=== PATIENT | female | born 1960 | race Caucasian/White ===

== ENCOUNTER 2018-05-13 00:03 | Inpatient (IN) | END 2018-05-13 17:51 | disposition home or self-care (01) | DRG 390 ==

== ENCOUNTER 2018-11-30 07:37 | Inpatient (IN) | payer OTHER ==
--- NOTE | 2018-11-27 11:51 | HP ---
Date/Time of Note Date/Time of Note DATE: 11/27/18 TIME: 11:42 Assessment/Plan VTE Prophylaxis SCD applied (from Nsg): Yes SCD contraindicated: low risk/ambulating Pharmacological prophylaxis: LMWH Lines/Catheters IV Catheter Type (from Nrsg): Saline Lock Central line still needed: No Urinary Cath still in place: No Assessment/Plan Hospital Course This patient has a large incisional hernia. We have reviewed the surgical options. She understands the risk of surgery to include but not exclusive to: Bleeding, infection, damage to bowel requiring repair and a staged operation, recurrence, 5% lifetime risk of mesh complications, chronic pain syndrome, drain placement, seroma. She understands mesh would be placed. Problems: (1) Incisional hernia Status: Chronic Qualifiers: Obstruction and gangrene presence: with obstruction but without gangrene Qualified Codes: K43.0 - Incisional hernia with obstruction, without gangrene Assessment/Plan Admission to the hospital the day of surgery. Patient will undergo a open incisional hernia repair with placement of mesh. She will be admitted for overnight observation. Drains will be placed. HPI/ROS Admit Date/Time Admit Date/Time 11/27/2018 Hx of Present Illness Chief complaint: Incisional hernia History of present illness: This is a 58-year-old female. She's had previous surgery for diverticulitis. N 2017 she was admitted to [facility] for a small bowel obstruction. She was transferred to [facility] and her symptoms resolved. She was discharged home. She has a large incisional hernia, and requires repair. The patient had a preoperative colonoscopy which is relatively unremarkable. ROS Constitutional: no complaints, improved Eyes: no complaints ENT: no complaints Respiratory: no complaints Cardiovascular: no complaints Gastrointestinal: no complaints Musculoskeletal: no complaints Neurologic: no complaints Psychological: no complaints, nl mood/affect PMH/Family/Social Past Medical History Medical History: hypertension Medications No ASA, no blood thinners HTN meds Coded Allergies: No Known Allergy (Unverified , 05/13/18) Past Surgical History Past Surgical Hx: other (2006 Surgery at [facility] for Diverticulitis) Social History Smoking Status: Never smoker Drug Use: none Exam/Review of Systems Exam Constitutional: alert, oriented, well developed Psych: no complaints, nl mood/affect Head: normocephalic Eyes: nl conjunctiva, EOMI ENMT: nl external ears & nose Neck: supple Respiratory: clear to auscultation, normal air movement Cardiovascular: regular rate and rhythm, nl pulses Gastrointestinal: soft, surgical scars, other (Scar in the left upper quadrant and midline, midline large soft hernia) Musculoskeletal: nl extremities to inspection, nl gait and stance Extremities: normal pulses Neurological: MANAGER OF GLOBAL II-XII intact, nl mental status, nl speech, nl strength Skin: nl JULIETTE Cruz M.D. November 27, 2018 11:51
[~2018-11-30] VITALS: Ht 139.7 cm; Wt 60.2 kg
[2018-11-30] VITALS (32 sets, daily range): BP systolic 93–141; BP diastolic 53–87; PULSE 64–94; RESP 16–33; Ht 139.7 cm; Wt 60.2 kg
[~2018-11-30 07:37] MED LIST: SOD CHLORIDE 0.9% 1,000 ML IV SCH
[2018-11-30] MEDS ORDERED: AMLO-147 PO (08:06)
[2018-11-30] MEDS ORDERED: LISI40TA3 PO (08:08)
--- NOTE | 2018-11-30 09:31 | RADRPT ---
Vent Rate: 60 bpm RR Interval: 1008 msec MD Interval: 191 msec QRS Duration: 91 msec QT Interval: 426 msec QTC Interval: 424 msec P-R-T Bryce: 34 - 93 - 63 degrees Sinus rhythm...normal Electronically Signed By: Reyes Cleary
[2018-11-30] MEDS ORDERED: POLYMYXIN/BACITRACIN 1L IRRIG ONE (11:24)
[2018-11-30] MEDS ORDERED: BUPIVACAINE 0.25%/EPI (SDV) 30 ML INJ ONE (11:27)
--- NOTE | 2018-11-30 11:28 | HPN ---
Date/Time of Note Date/Time of Note DATE: 11/30/18 TIME: 11:28 Interval H&P Admission Note Pt. seen H&P reviewed: No system changes JULIETTE VELOZ M.D. November 30, 2018 11:28
--- NOTE | 2018-11-30 11:41 | PREAC ---
Date/Time of Note Date/Time of Note DATE: 11/30/18 TIME: 11:40 Anesthesia Eval and Record Evaluation Time Pre-Procedure Interview DATE: 11/30/18 TIME: 11:40 Age 58 Sex female NPO: 8 hrs Preoperative diagnosis Ventral hernia Planned procedure Lap ventral Hernia repair Past Medical History Past Medical History: Includes Cardio: HTN, Dyslipidemia GI: GERD, Morbid obesity Surgery & Anesthesia Issues No known issue Meds Anticoagulation: Yes Beta Patricia within 24 hr: No Reason Beta Patricia not given: Pt. not on B-Patricia Reported Medications Lisinopril* (Lisinopril*) 40 Mg Tablet, 40 MG PO DAILY, #30 TAB 11/30/18 Amlodipine Besylate* (Amlodipine Besylate*) 10 Mg Tablet, 10 MG PO DAILY, #30 TAB 11/30/18 Current Medications Sodium Chloride 1,000 ml @ 25 mls/hr Q24H IV ; Start 11/27/18 at 11:51 Meds reviewed: Yes Allergies Coded Allergies: No Known Allergy (Unverified , 11/30/18) Allergies Reviewed: Yes Labs/Studies Labs Reviewed: Reviewed by anesthesiologist Result Diagram: 11/30/18 0830 11/30/18 0830 Laboratory Tests 11/30/18 08:30 test: N/A Studies: ECG Pre-procedure Exam Last vitals Vital Signs Date Temp Pulse Resp B/P (MAP) Pulse Ox O2 O2 Flow FiO2 Time Delivery Rate 11/30/18 97.2 64 18 141/87 99 Room Air 08:54 (105) Airway: Adequate mouth opening, Adequate thyromental dist Mallampati: Mallampati II Teeth: Normal Lung: Normal Heart: Normal ASA Physical Status ASA physical status: 3 Emergency: None Planned Anesthetic General/MAC: ETT Planned Pain Management Sub-arachniod narcotics, Parenteral pain med Pre-operative Attestations Prior to commencing anesthesia and surgery, the patient was re-evaluated, there was verification of: *The patient's identity *The results of appropriate recent lab work and preoperative vital signs *The above evaluation not changing prior to induction *Anesthetic plan, risk benefits, alternative and complications discussed with patient/family; questions answered; patient/family understands, accepts and wishes to proceed. GLADYS COMER MD November 30, 2018 11:41
[2018-11-30] MEDS ORDERED: MIDAZOLAM 1 MG/ML 2 ML INJ ONE (11:46)
[2018-11-30] MEDS ORDERED: morphine SULFATE/PF (10 MG/10 ML) INJ ONE (11:46)
[2018-11-30] MEDS ORDERED: FENTAnyl 50 MCG/ML VIAL ONE ×3 (11:46→16:30)
[2018-11-30] MEDS ORDERED: PHENYLephrine 10 MG INJ ONE (12:41)
[2018-11-30] MEDS ORDERED: CEFAZOLIN 1 GM INJ ONE (15:13)
[2018-11-30] MEDS ORDERED: ROCURONIUM 50 MG INJ ONE (15:13)
[2018-11-30] MEDS ORDERED: ETOMIDATE 20 MG INJ ONE (15:13)
[2018-11-30] MEDS ORDERED: LIDOCAINE 2% (SDV) 5 ML INJ ONE (15:13)
[2018-11-30] MEDS ORDERED: METOCLOPRAMIDE 10 MG INJ ONE (15:14)
[2018-11-30] MEDS ORDERED: ONDANSETRON 4 MG INJ ONE (15:14)
[2018-11-30] MEDS ORDERED: DEXAMETHASONE 4 MG/ML 5 ML INJ ONE (15:14)
[2018-11-30] MEDS ORDERED: BACITRACIN/POLYMYXIN 28.35 GM OINT TOP ONE (15:58)
--- NOTE | 2018-11-30 16:26 | OPR ---
Date/Time of Note Date/Time of Note DATE: 11/30/18 TIME: 16:11 Operative Report Procedure Date: November 30, 2018 Preoperative Diagnosis Large incisional hernia Postoperative Diagnosis Large incisional hernia, with loss of abdominal domain. Hernia size approximately 20 x 20 cm. Operation/Procedure Performed 1. Exploratory laparotomy 2. Lysis of adhesions approximately 25% of the operation 1 hour 3. Left-sided component separation anterior 4. Right-sided component separation anterior 5. Incisional hernia repair with placement of mesh. Surgeon Juliette Veloz MD Human Resources Professional MATTHIAS Fink Anesthesia Type: general, spinal Anesthesiologist: GLADYS COMER MD Estimated Blood Loss: 200 - 250 ml's Transfusion none Specimen Hernia sac Grafts/Implants 2 layers of mesh, large porous light weight polypropylene, with medium weight Seprafilm coated polypropylene. Tubes/Drains Prefascial drains bilaterally. Carlos's 19 Complications none Pt Condition Post Procedure: stable Disposition: PACU Indications This is a 58-year-old female who had a very large incisional hernia requesting repair. Procedure Description Findings: The patient had an approximately 20 x 20 cm hernia with loss of domain. She had significant scarring in the right flank and left upper quadrant. Preoperatively the patient was marked. Prior to induction of anesthesia the anesthesiologist placed a spinal. The patient was then intubated. The area was prepped and draped. A full timeout was performed. The old scar was reexcised. Blunt dissection continued down to the very large hernia sac. There was no bowel adherent in the hernia sac. The hernia sac was excised in its entirety. We then worked our way to the edges of the hernia. It was a large defect approximately 20 cm x 20 cm. Initially prefascial a 1 cm margin was made. Then the retrorectus space was entered. The rectal rectus space was developed, bilaterally. There was scarring where the old colostomy site was. I attempted to bring the retrorectus space together but it was clear that that was going to be impossible. I then pulled on the anterior fascia and noted that we still had at least a 10 to 15 cm defect to reapproximate. Therefore I attempted on the left side where the previous colostomy was to develop a plane on top of the transversalis fascia. But due to scarring this was very difficult and I thought that we would not be able to develop the plane needed for this type of repair. The reason I tried the left side as I was aside with the most scarring from the colostomy. Therefore I decided to proceed with an anterior component separation. I went out to the margins. Identified the junction of the rectus muscle and the external oblique fascia. On the left side were able to enter the space relatively easily. And I extended that released from the ribs almost down to the area of the iliac crest. I attempted the same procedure on the right side but that was more contracted and initially I got into the lateral margin of the rectus sheath. That was reapproximated with a running 0 PDS. I went out laterally and got into the correct plane. And again developed that from the ribs down to just above the iliac crest. That gave us more room. We reevaluated the hernia and the hernia size was quite large it was close to just below the xiphoid process down to above the pubic bone. We are able to reapproximate the posterior fascia, but again even with a component separation and complete relaxation this was not possible. Therefore I placed a medium weight polypropylene mesh with Seprafilm coating and reapproximated to the posterior fascia using a running PDS. Care was taken not to involve any intra- abdominal content in the closure. The overlap was approximately 2 to 3 cm. This was not a strength layer by layer to keep the bowel inside. The lower portion just above the pelvic bone the posterior fascia was extremely thin and I did place 1 piece of light weight polypropylene in that area just to reinforce it. It was tacked to the medium weight polypropylene to ensure there would be no intermenstrual hernia. Once that was completed we did a complete sponge count. I then reapproximated the anterior fascia both cranially and caudally as far as I could go before start tearing. This was done with #1 Vicryl [id number] interrupted sutures. This left us with a defect that was approximately 5 x 3 cm. This also gave the previous mesh in underlay of approximately 5 to 7 cm and a 360 degree fashion. We had a large anterior component separation. Therefore I completely opened up that space. And placed a large piece of light weight polypropylene mesh extending from the iliac crest up to the ribs laterally, and from the pubic bone to the xiphoid process in the midline. It was tacked into place with a bunch of interrupted #1 Vicryl sutures. It extended beyond the component separation. While tying these Vicryl sutures a clamp was placed below them to ensure that there was no incarceration of a hidden nerve. Once that was completed the area was well irrigated. Two 19 Carlos drains were placed and sutured in place with 0 silk suture. This was underneath the flap. The flap was then reapproximated to the fascia using multiple interrupted 0 chromic sutures. The midline was closed in a 3 layer closure. The umbilicus was reapproximated to the fascia using 1-0 Vicryl suture. The skin was then closed with skin ruby. Sterile dressing was applied and abdominal binder applied. Sponge and needle count again were correct at the end of procedure. Personally repeated the count of the sponges a second time myself. JULIETTE VELOZ M.D. November 30, 2018 16:26
[2018-11-30] MEDS ORDERED: METOCLOPRAMIDE 10 MG INJ IV PRN (16:30)
[2018-11-30] MEDS ORDERED: HYDROCODONE/APAP (5/325) TAB PO PRN (16:30)
[2018-11-30] MEDS ORDERED: DIPHENHYDRAMINE 50 MG INJ IV PRN ×2 (16:30)
[2018-11-30] MEDS ORDERED: HYDROmorphONE 1 MG/5 ML IV SYRINGE IV PRN ×2 (16:30)
[2018-11-30] MEDS ORDERED: MEPERIDINE 25 MG INJ IV PRN (16:30)
[2018-11-30] MEDS ORDERED: FENTAnyl 50 MCG/ML VIAL IV PRN (16:30)
[2018-11-30] MEDS ORDERED: NALOXONE (0.4 MG/ML) INJ IV PRN (16:30)
[2018-11-30] MEDS ORDERED: HYDROCODONE/APAP (10/325) TAB PO PRN (16:30)
[2018-11-30] MEDS ORDERED: ONDANSETRON 4 MG INJ IV PRN (16:30)
--- NOTE | 2018-11-30 16:31 | PAC ---
Date/Time of Note Date/Time of Note DATE: 11/30/18 TIME: 16:30 Post-Anesthesia Notes Post-Anesthesia Note Last documented vital signs Vital Signs Date Temp Pulse Resp B/P (MAP) Pulse Ox O2 O2 Flow FiO2 Time Delivery Rate 11/30/18 98.0 16:14 11/30/18 64 18 141/87 99 Room Air 08:54 (105) Activity: WNL Respiratory function: WNL Cardiovascular function: WNL Mental status: Baseline Pain reasonably controlled: Yes Hydration appropriate: Yes Nausea/Vomiting absent: Yes Comments BP:122/56, P:78, Spo2:100%, T:99,8 GLADYS COMER MD November 30, 2018 16:31
--- NOTE | 2018-11-30 17:56 | CONS ---
Assessment/Plan Assessment/Plan Hospital Course (Demo Recall) 58 yo female with hypertension who is POD0 for ventral hernia repair. We have been asked to provide medical comanagement - Ok to continue amlodipine and lisinopril through perioperative period - Pain control - Perioperative management per surgery Consultation Date/Type/Reason Admit Date/Time 11/27/2018 Date/Time of Note DATE: 11/30/18 TIME: 17:51 Hx of Present Illness 58 yo female with h/o hypertension and diverticulitis who is POD0 for ventral hernia repair Patient currently in the PACU, feels ok. A bit somnulent Take two antihypertensives Generally healthy at baseline Constitutional: no complaints, improved Eyes: no complaints ENT: no complaints Respiratory: no complaints Cardiovascular: no complaints Gastrointestinal: no complaints Genitourinary: no complaints Musculoskeletal: no complaints Skin: no complaints Neurologic: no complaints Endocrine: no complaints Lymphatic: no complaints Psychological: no complaints, nl mood/affect Immunologic: no complaints Past Medical History Medical History: hypertension Home Meds Reported Medications Lisinopril* (Lisinopril*) 40 Mg Tablet, 40 MG PO DAILY, #30 TAB 11/30/18 Amlodipine Besylate* (Amlodipine Besylate*) 10 Mg Tablet, 10 MG PO DAILY, #30 TAB 11/30/18 Medications Current Medications Hydromorphone HCl (Dilaudid) 0.2 mg PACU PRN IV MILD PAIN 1-3; Start 11/30/18 at 16:30; Stop 11/30/18 at 22:00 Hydromorphone HCl (Dilaudid) 0.4 mg PACU PRN IV MOD PAIN 4-6; Start 11/30/18 at 16:30; Stop 11/30/18 at 22:00 Fentanyl (Sublimaze) 25 mcg PACU ORDER PRN IV MILD PAIN 1-3 Last administered on 11/30/18at 16:35; Admin Dose 25 MCG; Start 11/30/18 at 16:30; Stop 11/30/18 at 22:00 Ondansetron HCl (Zofran Inj) 4 mg PACU ORDER PRN IV NAUSEA/VOMITING; Start 11/30/18 at 16:30; Stop 11/30/18 at 22:00 Metoclopramide HCl (Reglan) 10 mg PACU ORDER PRN IV NAUSEA/VOMITING; Start 11/30/18 at 16:30; Stop 11/30/18 at 22:00 Meperidine HCl (Demerol) 25 mg PACU ORDER PRN IV .RIGORS Last administered on 11/30/18at 16:33; Admin Dose 25 MG; Start 11/30/18 at 16:30; Stop 11/30/18 at 22:00 Diphenhydramine HCl (Benadryl) 25 mg PACU ORDER PRN IV .PRURITUS; Start 11/30/18 at 16:30; Stop 11/30/18 at 22:00 Naloxone HCl (Narcan) 0.2 mg Q2M PRN IV .RESP RATE; Start 11/30/18 at 16:30; Stop 12/01/18 at 11:45 Miscellaneous Information (* Miscellaneous Pharmacy Order) DURAMORPH: 0.2 MG SPI... GIVEN NEURAXIAL XX ; Start 11/30/18 at 16:30 Cefazolin Sodium/ Dextrose 50 ml @ 100 mls/hr Q8H IVPB ; Start 11/30/18 at 18:00; Stop 12/01/18 at 17:59 Hydromorphone HCl (Dilaudid) 0.5 mg Q6H PRN IV PAIN LEVEL 6-10; Start 11/30/18 at 16:30 Acetaminophen/ Hydrocodone Bitart ([place] (5/325)) 1 tab Q6H PRN PO PAIN LEVEL 6-10; Start 11/30/18 at 16:30 Acetaminophen/ Hydrocodone Bitart ([place] (10/325)) 1 tab Q6H PRN PO PAIN; Start 11/30/18 at 16:30 Ketorolac Tromethamine (Toradol) 30 mg Q6H PRN IV PAIN; Start 11/30/18 at 16:30; Stop 12/03/18 at 16:29 Diphenhydramine HCl (Benadryl) 25 mg Q6H PRN IV ITCHING; Start 11/30/18 at 16:30 Ondansetron HCl (Zofran Inj) 4 mg Q6H PRN IV NAUSEA AND/OR VOMITING; Start 11/30/18 at 16:30 Famotidine (Pepcid Iv) 20 mg Q12 IV ; Start 11/30/18 at 21:00 Potassium Chloride/Dextrose/ Sod Cl 1,000 ml @ 100 mls/hr Q10H IV ; Start 11/30/18 at 16:26 Enoxaparin Sodium (Lovenox) 40 mg DAILY@07 SC ; Start 12/01/18 at 07:00 Amlodipine Besylate (Norvasc) 10 mg DAILY PO ; Start 12/01/18 at 09:00 Lisinopril (Zestril) 40 mg DAILY PO ; Start 12/01/18 at 09:00 Allergies: Coded Allergies: No Known Allergy (Unverified , 11/30/18) Past Surgical History Past Surgical Hx: other (2006 Surgery at [facility] for Diverticulitis) Social History Smoking Status: Never smoker Drug Use: none Exam/Review of Systems Exam Vitals Vital Signs Date Temp Pulse Resp B/P (MAP) Pulse Ox O2 O2 Flow FiO2 Time Delivery Rate 11/30/18 Simple 8.0 16:21 Mask 11/30/18 98.0 16:14 11/30/18 64 18 141/87 99 08:54 (105) Constitutional: alert, oriented, well developed Psych: no complaints, nl mood/affect Head: normocephalic, atraumatic Eyes: nl conjunctiva, EOMI, nl lids, nl sclera, PERRL ENMT: nl external ears & nose, nl lips & teeth, nl nasal mucosa & septum Neck: supple, non-tender Respiratory: clear to auscultation, normal air movement Cardiovascular: regular rate and rhythm, nl pulses Gastrointestinal: soft, nl liver, spleen, non-tender Musculoskeletal: nl extremities to inspection, nl gait and stance Extremities: normal pulses Neurological: TIPPLE GREASER II-XII intact, nl mental status, nl speech, nl strength Skin: nl turgor; No rash or lesions Lymph: nl lymph nodes Results Result Diagram: 11/30/18 0830 11/30/18 0830 Results 24hrs Laboratory Tests Test 11/30/18 08:30 White Blood Count 6.4 # Red Blood Count 4.84 Hemoglobin 12.6 Hematocrit 40.1 Mean Corpuscular Volume 82.9 Mean Corpuscular Hemoglobin 26.0 L Mean Corpuscular Hemoglobin Concent 31.4 L Red Cell Distribution Width 13.4 Platelet Count 368 Mean Platelet Volume 8.5 Immature Granulocytes % 0.500 H Neutrophils % 63.6 Lymphocytes % 26.6 Monocytes % 7.0 Eosinophils % 1.2 Basophils % 1.1 Nucleated Red Blood Cells % 0.0 Immature Granulocytes # 0.030 Neutrophils # 4.1 Lymphocytes # 1.7 Monocytes # 0.5 Eosinophils # 0.1 Basophils # 0.1 Nucleated Red Blood Cells # 0.0 Sodium Level 143 Potassium Level 4.1 Chloride Level 108 Carbon Dioxide Level 27 Anion Gap 8 Blood Urea Nitrogen 20 Creatinine 0.73 Est Glomerular Filtrat Rate mL/min > 60 Glucose Level 116 Calcium Level 9.7 Beta HCG, Quantitative 2.9 Medications Medication Current Medications Hydromorphone HCl (Dilaudid) 0.2 mg PACU PRN IV MILD PAIN 1-3; Start 11/30/18 at 16:30; Stop 11/30/18 at 22:00 Hydromorphone HCl (Dilaudid) 0.4 mg PACU PRN IV MOD PAIN 4-6; Start 11/30/18 at 16:30; Stop 11/30/18 at 22:00 Fentanyl (Sublimaze) 25 mcg PACU ORDER PRN IV MILD PAIN 1-3 Last administered on 11/30/18at 16:35; Admin Dose 25 MCG; Start 11/30/18 at 16:30; Stop 11/30/18 at 22:00 Ondansetron HCl (Zofran Inj) 4 mg PACU ORDER PRN IV NAUSEA/VOMITING; Start 11/30 at 16:30; Stop 11/30/18 at 22:00 Metoclopramide HCl (Reglan) 10 mg PACU ORDER PRN IV NAUSEA/VOMITING; Start 11/30/18 at 16:30; Stop 11/30/18 at 22:00 Meperidine HCl (Demerol) 25 mg PACU ORDER PRN IV .RIGORS Last administered on 11/30/18at 16:33; Admin Dose 25 MG; Start 11/30/18 at 16:30; Stop 11/30/18 at 22:00 Diphenhydramine HCl (Benadryl) 25 mg PACU ORDER PRN IV .PRURITUS; Start 11/30/18 at 16:30; Stop 11/30/18 at 22:00 Naloxone HCl (Narcan) 0.2 mg Q2M PRN IV .RESP RATE; Start 11/30/18 at 16:30; Stop 12/01/18 at 11:45 Miscellaneous Information (* Miscellaneous Pharmacy Order) DURAMORPH: 0.2 MG SPI... GIVEN NEURAXIAL XX ; Start 11/30/18 at 16:30 Cefazolin Sodium/ Dextrose 50 ml @ 100 mls/hr Q8H IVPB ; Start 11/30/18 at 18:00; Stop 12/01/18 at 17:59 Hydromorphone HCl (Dilaudid) 0.5 mg Q6H PRN IV PAIN LEVEL 6-10; Start 11/30/18 at 16:30 Acetaminophen/ Hydrocodone Bitart ([place] (5/325)) 1 tab Q6H PRN PO PAIN LEVEL 6-10; Start 11/30/18 at 16:30 Acetaminophen/ Hydrocodone Bitart ([place] (10/325)) 1 tab Q6H PRN PO PAIN; Start 11/30/18 at 16:30 Ketorolac Tromethamine (Toradol) 30 mg Q6H PRN IV PAIN; Start 11/30/18 at 16:30; Stop 12/03/18 at 16:29 Diphenhydramine HCl (Benadryl) 25 mg Q6H PRN IV ITCHING; Start 11/30/18 at 16:30 Ondansetron HCl (Zofran Inj) 4 mg Q6H PRN IV NAUSEA AND/OR VOMITING; Start 11/30/18 at 16:30 Famotidine (Pepcid Iv) 20 mg Q12 IV ; Start 11/30/18 at 21:00 Potassium Chloride/Dextrose/ Sod Cl 1,000 ml @ 100 mls/hr Q10H IV ; Start 11/30/18 at 16:26 Enoxaparin Sodium (Lovenox) 40 mg DAILY@07 SC ; Start 12/01/18 at 07:00 Amlodipine Besylate (Norvasc) 10 mg DAILY PO ; Start 12/01/18 at 09:00 Lisinopril (Zestril) 40 mg DAILY PO ; Start 12/01/18 at 09:00 TIFF DE LEON MD November 30, 2018 17:56
[2018-11-30] MEDS: CEFAZOLIN 2 GM/50 ML (PMX) 50 ML IVPB SCH (18:00)
[2018-11-30] MEDS: D5W-0.45 NACL + KCL 20 MEQ 1,000 ML IV SCH (20:50)
[2018-11-30] MEDS: FAMOTIDINE 20 MG INJ IV SCH (20:53)
[2018-12-01 00:44] VITALS: BP 117/70; RESP 18
[2018-12-01] MEDS: CEFAZOLIN 2 GM/50 ML (PMX) 50 ML IVPB SCH ×2 (02:02→10:59)
[2018-12-01] MEDS: HYDROmorphONE 0.5 MG/0.5 ML SYG IV PRN ×2 (02:04→09:06)
[2018-12-01] MEDS: ONDANSETRON 4 MG INJ IV PRN ×3 (02:06→17:08)
[2018-12-01] MEDS: D5W-0.45 NACL + KCL 20 MEQ 1,000 ML IV SCH ×3 (02:26→22:42)
[2018-12-01] MEDS: KETOROLAC 30 MG INJ IV PRN ×3 (05:33→22:56)
[2018-12-01] MEDS: ENOXAPARIN 40 MG/0.4 ML SYG SC SCH (06:37)
[2018-12-01 07:49] VITALS: BP 118/78; PULSE 71; RESP 18
--- NOTE | 2018-12-01 08:04 | PN ---
Date/Time of Note Date/Time of Note DATE: 12/01/18 TIME: 08:01 Assessment/Plan Lines/Catheters IV Catheter Type (from Nrs): Peripheral IV Gonzalez in Place (from Nrs): Yes Cont'd gonzalez catheter reason: urinary retention, other (indicate) (Severe pain and need for accurate I's and O's) Assessment/Plan Chief Complaint/Hosp Course This patient has a large incisional hernia. We have reviewed the surgical options. She understands the risk of surgery to include but not exclusive to: Bleeding, infection, damage to bowel requiring repair and a staged operation, recurrence, 5% lifetime risk of mesh complications, chronic pain syndrome, drain placement, seroma. She understands mesh would be placed. Problems: (1) Incisional hernia Status: Chronic Qualifiers: Obstruction and gangrene presence: with obstruction but without gangrene Qualified Codes: K43.0 - Incisional hernia with obstruction, without gangrene Assessment/Plan Patient postop day 1 from a very large ventral hernia repair. She does have a mild drop in hematocrit which is expected. Mild leukocytosis which may also be expected. Continue antibiotics for now. Increase activity level with physical therapy. Keep Gonzalez catheter in for now. We will add Reglan. Follow-up tomorrow. Subjective 24 Hr Interval Summary Patient postop day 1 from a large incisional hernia repair with component separation. Patient had some nausea overnight. Mostly from the NG tube. She states most of her pain is abdominal wall pain. She denies passing gas. Care reviewed with patient and patient's daughter at bedside. Constitutional: improved Feeding: NPO Pain Control: mild Additional Comments Discussed the use of Toradol with nursing. Prefer every 6 hours Add Reglan for nausea and vomiting Detailed Summary Eyes: no complaints Respiratory: no complaints Cardiovascular: no complaints Gastrointestinal: other (As above) Neurologic: no complaints Exam/Review of Systems Vital Signs Vitals Vital Signs Date Temp Pulse Resp B/P (MAP) Pulse Ox O2 O2 Flow FiO2 Time Delivery Rate 12/01/18 99.0 71 18 118/78 98 Nasal 07:49 (91) Cannula 11/30/18 4.0 21:50 Intake and Output 11/30/18 11/30/18 12/01/18 1515:00 23:00 07:00 IntakeIntake Total 1800 ml 850 ml OutputOutput Total 340 ml 2095 ml BalanceBalance 1460 ml -1245 ml Exam Constitutional: alert, oriented, well developed Psych: nl mood/affect Head: normocephalic Eyes: nl conjunctiva ENMT: nl external ears & nose Respiratory: clear to auscultation, normal air movement Cardiovascular: regular rate and rhythm, nl pulses Gastrointestinal: other (Dressing change, wound dry and intact no cellulitis. WYATT output noted.) Musculoskeletal: nl extremities to inspection, swelling (Swelling of extremities) Extremities: normal pulses Neurological: PBX REPAIRER II-XII intact Results Result Diagram: 12/01/18 0437 12/01/18 0437 JULIETTE VELOZ M.D. December 01, 2018 08:04
[2018-12-01] MEDS: FAMOTIDINE 20 MG INJ IV SCH ×2 (08:11→20:29)
[2018-12-01] MEDS: AMLODIPINE 10 MG TAB PO SCH (08:11)
[2018-12-01] MEDS: LISINOPRIL 20 MG TAB PO SCH (08:12)
[2018-12-01] MEDS ORDERED: METOCLOPRAMIDE 10 MG INJ IV PRN (08:30)
[2018-12-01 16:00] VITALS: BP 111/69; PULSE 70; RESP 18
[2018-12-01] MEDS ORDERED: LIDOCAINE 2% JELLY 5 ML TOP ONE (16:00)
--- NOTE | 2018-12-01 17:07 | CONS ---
Assessment/Plan Assessment/Plan Hospital Course (Demo Recall) 58 yo female with hypertension who is POD0 for ventral hernia repair. We have been asked to provide medical comanagement - Ok to continue amlodipine and lisinopril through perioperative period - Pain control - Perioperative management per surgery Consultation Date/Type/Reason Admit Date/Time November 30, 2018 at 16:35 Initial Consult Date Date/Time of Note DATE: 12/01/18 TIME: 17:07 Exam/Review of Systems Exam Vitals Vital Signs Date Temp Pulse Resp B/P (MAP) Pulse Ox O2 O2 Flow FiO2 Time Delivery Rate 12/01/18 98.9 70 18 111/69 98 Nasal 16:00 (83) Cannula 12/01/18 3.0 07:54 Intake and Output 11/30/18 11/30/18 12/01/18 1515:00 23:00 07:00 IntakeIntake Total 1800 ml 850 ml OutputOutput Total 340 ml 2095 ml BalanceBalance 1460 ml -1245 ml Results Result Diagram: 12/01/18 0437 12/01/18 0437 Results 24hrs Laboratory Tests Test 12/01/18 04:37 White Blood Count 16.4 #H Red Blood Count 3.79 #L Hemoglobin 10.0 #L Hematocrit 31.2 #L Mean Corpuscular Volume 82.3 Mean Corpuscular Hemoglobin 26.4 L Mean Corpuscular Hemoglobin Concent 32.1 Red Cell Distribution Width 13.4 Platelet Count 301 Mean Platelet Volume 8.7 Immature Granulocytes % 0.400 Neutrophils % 87.5 H Lymphocytes % 7.4 L Monocytes % 4.5 Eosinophils % 0.0 Basophils % 0.2 Nucleated Red Blood Cells % 0.0 Immature Granulocytes # 0.060 H Neutrophils # 14.3 H Lymphocytes # 1.2 Monocytes # 0.7 Eosinophils # 0.0 Basophils # 0.0 Nucleated Red Blood Cells # 0.0 Sodium Level 138 Potassium Level 4.4 Chloride Level 105 Carbon Dioxide Level 25 Anion Gap 8 Blood Urea Nitrogen 14 Creatinine 0.71 Est Glomerular Filtrat Rate mL/min > 60 Glucose Level 203 Calcium Level 8.3 L Magnesium Level 1.5 L Medications Medication Current Medications Miscellaneous Information (* Miscellaneous Pharmacy Order) DURAMORPH: 0.2 MG SPI... GIVEN NEURAXIAL XX ; Start 11/30/18 at 16:30 Cefazolin Sodium/ Dextrose 50 ml @ 100 mls/hr Q8H IVPB Last administered on 12/01/18 10:59; Admin Dose 100 MLS/HR; Start 11/30/18 at 18:00; Stop 12/01/18 at 17:59 Hydromorphone HCl (Dilaudid) 0.5 mg Q6H PRN IV PAIN LEVEL 6-10 Last administered on 12/01/18 09:06; Admin Dose 0.5 MG; Start 11/30/18 at 16:30 Acetaminophen/ Hydrocodone Bitart ([place] (5/325)) 1 tab Q6H PRN PO PAIN LEVEL 6-10; Start 11/30/18 at 16:30 Acetaminophen/ Hydrocodone Bitart ([place] (10/325)) 1 tab Q6H PRN PO PAIN; Start 11/30/18 at 16:30 Ketorolac Tromethamine (Toradol) 30 mg Q6H PRN IV PAIN Last administered on 12/01/18at 14:25; Admin Dose 30 MG; Start 11/30/18 at 16:30; Stop 12/03/18 at 16:29 Diphenhydramine HCl (Benadryl) 25 mg Q6H PRN IV ITCHING; Start 11/30/18 at 16:30 Ondansetron HCl (Zofran Inj) 4 mg Q6H PRN IV NAUSEA AND/OR VOMITING Last administered on 12/01/18 08:11; Admin Dose 4 MG; Start 11/30/18 at 16:30 Famotidine (Pepcid Iv) 20 mg Q12 IV Last administered on 12/01/18 08:11; Admin Dose 20 MG; Start 11/30/18 at 21:00 Potassium Chloride/Dextrose/ Sod Cl 1,000 ml @ 100 mls/hr Q10H IV Last administered on 12/01/18 11:02; Admin Dose 100 MLS/HR; Start 11/30/18 at 16:26 Enoxaparin Sodium (Lovenox) 40 mg DAILY@07 SC Last administered on 12/01/18 06:37; Admin Dose 40 MG; Start 12/01/18 at 07:00 Amlodipine Besylate (Norvasc) 10 mg DAILY PO Last administered on 12/01/18 08:11; Admin Dose 10 MG; Start 12/01/18 at 09:00 Lisinopril (Zestril) 40 mg DAILY PO Last administered on 12/01/18at 08:12; Admin Dose 40 MG; Start 12/01/18 at 09:00 Metoclopramide HCl (Reglan) 5 mg Q6H PRN IV NAUSEA Last administered on 12/01/18at 09:10; Admin Dose 5 MG; Start 12/01/18 at 08:30 TIFF DE LEON MD December 01, 2018 17:07
[2018-12-01 19:35] VITALS: BP 119/75; PULSE 68; RESP 18
[2018-12-01] MEDS ORDERED: MAGNESIUM SULFATE 1 GM/D5W 100 ML IVPB ONE (20:00)
[2018-12-02 02:05] VITALS: BP 127/72; PULSE 78; RESP 20
[2018-12-02] MEDS: KETOROLAC 30 MG INJ IV PRN ×2 (06:40→13:17)
[2018-12-02] MEDS: ENOXAPARIN 40 MG/0.4 ML SYG SC SCH (06:40)
[2018-12-02 07:23] VITALS: BP 128/75; PULSE 73; RESP 18
[2018-12-02] MEDS: D5W-0.45 NACL + KCL 20 MEQ 1,000 ML IV SCH ×2 (10:10→18:26)
[2018-12-02] MEDS: FAMOTIDINE 20 MG INJ IV SCH ×2 (10:14→20:54)
[2018-12-02] MEDS: AMLODIPINE 10 MG TAB PO SCH (10:14)
[2018-12-02] MEDS: LISINOPRIL 20 MG TAB PO SCH (10:15)
[2018-12-02 13:40] VITALS: BP 120/69; PULSE 78; RESP 18
[2018-12-02] MEDS ORDERED: BACITRACIN 0.9 GM OINT TOP SCH (17:00)
--- NOTE | 2018-12-02 18:52 | PN ---
Date/Time of Note Date/Time of Note DATE: 12/02/18 TIME: 18:50 Assessment/Plan Lines/Catheters IV Catheter Type (from [facility]): Peripheral IV (Decreased to 25 cc an hour) Sethi in Place (from [facility]): Yes (Removed today.) Assessment/Plan Chief Complaint/Hosp Course This patient has a large incisional hernia. We have reviewed the surgical options. She understands the risk of surgery to include but not exclusive to: Bleeding, infection, damage to bowel requiring repair and a staged operation, recurrence, 5% lifetime risk of mesh complications, chronic pain syndrome, drain placement, seroma. She understands mesh would be placed. Problems: (1) Incisional hernia Status: Chronic Qualifiers: Obstruction and gangrene presence: with obstruction but without gangrene Qualified Codes: K43.0 - Incisional hernia with obstruction, without gangrene Assessment/Plan Postop day 2. Markedly improved. Will slowly advance diet. If she tolerates clear liquids x24 hours will discharge tomorrow. Subjective 24 Hr Interval Summary Postop day 2. Patient passing gas and hungry. Patient ambulated today. Constitutional: ambulates, flatus Feeding: clear Pain Control: well controlled Exam/Review of Systems Vital Signs Vitals Vital Signs Date Temp Pulse Resp B/P (MAP) Pulse Ox O2 O2 Flow FiO2 Time Delivery Rate 12/02/18 98.5 78 18 120/69 90 13:40 (86) 12/01/18 Nasal 2.0 20:37 Cannula Intake and Output 12/01/18 12/01/18 12/02/18 1515:00 23:00 07:00 IntakeIntake Total 200 ml 1100 ml OutputOutput Total 80 ml 1420 ml 1875 ml BalanceBalance 120 ml -320 ml -1875 ml Exam Constitutional: alert, oriented, well developed Psych: nl mood/affect Eyes: nl conjunctiva ENMT: nl external ears & nose Neck: supple Respiratory: clear to auscultation Cardiovascular: regular rate and rhythm Gastrointestinal: soft, other (Wound dry and intact. WYATT output noted.) Extremities: normal pulses Results Result Diagram: 12/02/189 12/02/18 0439 JULIETTE VELOZ M.D. Dec 02, 2018 18:52
[2018-12-02 20:14] VITALS: BP 140/71; PULSE 77; RESP 20
[2018-12-03 02:22] VITALS: BP 138/72; PULSE 71; RESP 17
[2018-12-03] MEDS: ENOXAPARIN 40 MG/0.4 ML SYG SC SCH (06:58)
[2018-12-03] MEDS: D5W-0.45 NACL + KCL 20 MEQ 1,000 ML IV SCH (06:59)
[2018-12-03 08:00] VITALS: BP 116/67; PULSE 66; RESP 18
[2018-12-03] MEDS: LISINOPRIL 20 MG TAB PO SCH (08:56)
[2018-12-03] MEDS: AMLODIPINE 10 MG TAB PO SCH (08:57)
[2018-12-03] MEDS: FAMOTIDINE 20 MG INJ IV SCH ×2 (08:57→20:25)
[2018-12-03] MEDS ORDERED: BACITRACIN 0.5%/ZINC 28.35 GM OINT TOP SCH ×2 (09:00→12:30)
--- NOTE | 2018-12-03 18:39 | PDOCDIS ---
Discharge Instructions CONDITION [id number] Patient Condition: [id number] Good HOME CARE INSTRUCTIONS: [id number] Diet Instructions: [id number] Regular ACTIVITY: [id number] Activity Restrictions: [id number] Slowly Increase Activity Rest between Activity Avoid heavy lifting (No lifting over 10 pounds) Do not Drive Do not operate Machinery Avoid Heavy Housework [id number] Bathing Restrictions: [id number] Shower (Okay to get wound wet) FOLLOW UP/APPOINTMENTS Follow-up Plan Call office for follow-up appointment OTHER ORDERS: Other Orders: Record drain output Keep abdominal binder on unless showering JULIETTE VELOZ M.D. Dec 03, 2018 18:39
[2018-12-03] MEDS ORDERED: DOCU-144 PO (18:42)
[2018-12-03] MEDS ORDERED: HYDR-3601 PO (18:42)
--- NOTE | 2018-12-03 18:45 | DS ---
Date/Time of Note Date/Time of Note DATE: 12/03/18 TIME: 18:43 Discharge Summary Admission/Discharge Info Admit Date/Time November 30, 2018 at 16:35 Discharge Date/Time 12/03/2018 Discharge Diagnosis Status post incisional hernia repair Patient Condition: Good Consults Hospitalist for management of hypertension Hx of Present Illness Chief complaint: Incisional hernia History of present illness: This is a 58-year-old female. She's had previous surgery for diverticulitis. May 12, 2018 she was admitted to [facility] for a small bowel obstruction. She was transferred to [facility] and her symptoms resolved. She was discharged home. She has a large incisional hernia, and requires repair. The patient had a preoperative colonoscopy which is relatively unremarkable. Hospital Course This patient has a large incisional hernia. She underwent an open operation with bilateral anterior component separations, and placement of drains. Postoperatively she did well. She is tolerating regular diet. Her wounds are dry and intact. Drain output is minimal. Home Meds Reported Medications Lisinopril* (Lisinopril*) 40 Mg Tablet, 40 MG PO DAILY, #30 TAB 11/30/18 Amlodipine Besylate* (Amlodipine Besylate*) 10 Mg Tablet, 10 MG PO DAILY, #30 TAB 11/30/18 Follow-up Plan Call office for follow-up appointment Primary Care Provider Not On Staff Doctor Time spent on discharge: < 30 minutes Pending Labs Laboratory Tests Test 12/03/18 04:47 White Blood Count 11.5 10^3/ul (4.8-10.8) Red Blood Count 3.70 10^6/ul (4.20-5.40) Hemoglobin 9.7 g/dl (12.0-16.0) Hematocrit 30.4 % (37.0-47.0) Mean Corpuscular Volume 82.2 fl (82.0-101.0) Mean Corpuscular Hemoglobin 26.2 pg (29.0-33.0) Mean Corpuscular Hemoglobin Concent 31.9 g/dl (32.0-37.0) Red Cell Distribution Width 13.7 % (11.5-14.5) Platelet Count 337 10^3/UL (140-415) Mean Platelet Volume 9.0 fl (7.4-10.4) Immature Granulocytes % 0.600 % (0.001-0.429) Neutrophils % 75.4 % (39.0-77.0) Lymphocytes % 17.7 % (15.0-51.0) Monocytes % 5.7 % (0.0-11.0) Eosinophils % 0.2 % (0.0-7.0) Basophils % 0.4 % (0.0-2.0) Nucleated Red Blood Cells % 0.0 /100WBC (0.0-0.0) Immature Granulocytes # 0.070 10^3/ul (0.0-0.031) Neutrophils # 8.7 10^3/ul (1.6-7.5) Lymphocytes # 2.0 10^3/ul (0.8-2.9) Monocytes # 0.7 10^3/ul (0.3-0.9) Eosinophils # 0.0 10^3/ul (0.0-0.5) Basophils # 0.1 10^3/ul (0.0-0.1) Nucleated Red Blood Cells # 0.0 10^3/ul (0.0-0.0) Sodium Level 142 mmol/L (135-144) Potassium Level 3.3 mmol/L (3.5-5.1) Chloride Level 109 mmol/L (97-110) Carbon Dioxide Level 27 mmol/L (21-31) Anion Gap 6 (5-13) Blood Urea Nitrogen 10 mg/dl (7-20) Creatinine 0.64 mg/dl (0.44-1.00) Est Glomerular Filtrat Rate mL/min > 60 mL/min (>60) Glucose Level 114 mg/dl (70-220) Calcium Level 8.6 mg/dl (8.4-10.2) Magnesium Level 2.2 mg/dl (1.7-2.5) JULIETTE VELOZ M.D. Dec 03, 2018 18:45
== END 2018-12-03 20:45 | disposition home or self-care (01) | DRG 355 ==
LOC: SDS 07:37 → REC 16:35 → SDS 16:35 → MS1 18:30
PROVIDERS: ADMIT Surgery Trauma Surgery; ATTEND Surgery Trauma Surgery
PROC: 0WUF0JZ Supplement Abdominal Wall with Synthetic Substitute, Open Approach (ICD-10-PCS; principal; 2018-11-30 09:30)
DX: K43.0 Incisional hernia with obstruction, without gangrene (principal); I10 Essential (primary) hypertension; E78.5 Hyperlipidemia, unspecified; K21.9 Gastro-esophageal reflux disease without esophagitis
CPT/HCPCS: 71045; 74018; 80048; 83735; 84702; 85025; 87086; 88302; 93005; 97110; 97116; 97161; 97530; C1781; J0690; J1100; J1170; J1650; J1885; J2175; J2250; J2274; J2370; J2405; J2765; J3010; J3475; J3480